=== PATIENT | male | born 1955 | race Two or more races ===

== ENCOUNTER → 2020-03-11 | Outpatient (CLI) | payer OTHER ==
--- NOTE | 2020-03-11 17:22 | RAD ---
EXAM: Left knee, 2 views. HISTORY: Pain. COMPARISON: None. FINDINGS: 2 views of the left knee are obtained. There is mild marginal spurring. There is a small joint effusion. There is no fracture, dislocation or subluxation. IMPRESSION: Mild tricompartmental osteoarthritis of the left knee with small joint effusion. Electronically signed by: Denice Tomlin MD (03/11/2020 5:19 PM) [facility]
== END ==
LOC: RAD 09:15
PROVIDERS: ATTEND Family Medicine
DX: M17.12 Unilateral primary osteoarthritis, left knee (principal); M25.462 Effusion, left knee
CPT/HCPCS: 73560